=== PATIENT | male | born 1945 | race Caucasian/White ===

== ENCOUNTER → 2020-02-22 | Outpatient (CLI) | payer MEDICARE, OTHER ==
--- NOTE | 2020-02-22 09:48 | RAD ---
EXAM: Pelvis and right hip, 3 views. HISTORY: Pain. COMPARISON: None. FINDINGS: A frontal view of the pelvis and 2 views of the right hip are obtained. There is no fracture, dislocation or subluxation. There is lateral hip joint space narrowing. There is degenerative subchondral cyst formation involving the right acetabulum and superior femoral head. There is mild to moderate bilateral femoral head marginal spurring and decreased femoral head-neck offset suggesting chronic hip impingement. There is degenerative change at the lower lumbar levels. IMPRESSION: 1. Moderate right and mild left hip osteoarthritis and findings suggesting chronic bilateral hip impingement. 2. No acute osseous finding. Electronically signed by: Ruthy Potts MD (02/22/2020 9:45 AM) [facility]
== END ==
LOC: PMG 08:52
PROVIDERS: ATTEND Physician Assistant Medical
DX: M16.0 Bilateral primary osteoarthritis of hip (principal); M76.9 Unspecified enthesopathy, lower limb, excluding foot; M47.816 Spondylosis without myelopathy or radiculopathy, lumbar region
CPT/HCPCS: 73502

== ENCOUNTER 2020-10-02 12:18 | Observation (INO) | payer MEDICARE, OTHER ==
[~2020-10-02] VITALS: Ht 185.4 cm; Wt 78.2 kg
[2020-10-02] MEDS ORDERED: IV NORMAL SALINE 1,000ML 1,000 ML IV SCH (12:30)
[2020-10-02 12:42] LABS: BASO # 0.1 x10^3/uL (0.0-0.2); BASO % 1 % (0-3); EOS # 0.6 x10^3/uL (0.0-0.7); EOS % 7 % (0-3); HEMATOCRIT 43.3 % (39.0-53.0); HEMOGLOBIN 14.6 g/dL (13.0-17.5); LYMPH # 1.8 x10^3/uL (1.0-4.8); LYMPH % 21 % (24-48); MEAN CORPUSCULAR HEMOGLOBIN 30 pg (25-35); MEAN CORPUSCULAR HGB CONC 34 g/dL (31-37); MEAN CORPUSCULAR VOLUME 89 fL (79-100); MONO # 0.8 x10^3/uL (0.0-1.1); MONO % 10 % (0-9); NEUT # 5.1 x10^3uL (1.8-7.7); NEUT % 62 % (31-73); PLATELET COUNT 186 x10^3/uL (140-400); RED BLOOD COUNT 4.84 x10^6/uL (4.30-5.70); RED CELL DISTRIBUTION WIDTH 13.6 % (11.5-14.5); WHITE BLOOD COUNT 8.3 x10^3/uL (4.0-11.0)
[2020-10-02 12:48] LABS: CALCIUM 9.5 mg/dL (8.5-10.1); GFR 73.2; POTASSIUM 3.7 mmol/L (3.5-5.1)
--- NOTE | 2020-10-02 12:52 | EKG ---
[address] [address] Test Date: 2020-10-02 Test Time: 12:20:53 Pat Name: PEDRO MEJIA Department: Room: Gender: M Lunchroom Attendant: JUSTUS : 1945 Requested By: NESHA DAVISON Order Number: [id number] Reading MD: Measurements Intervals [place] Rate: 61 P: 34 ME: 256 QRS: 66 QRSD: 166 T: 247 QT: 416 QTc: 420 Interpretive Statements SINUS RHYTHM ATRIAL PREMATURE COMPLEX(ES), BIGEMINY PROLONGED ME INTERVAL NON SPECIFIC INTRAVENTRICULAR BLOCK ABNORMAL ECG RI6.02 No previous ECG available for comparison
--- NOTE | 2020-10-02 12:53 | EKG ---
[address] [address] Test Date: 2020-10-02 Test Time: 12:37:06 Pat Name: PEDRO MEJIA Department: Room: Gender: M Station Tender: JUSTUS : 1945 Requested By: NESHA DAVISON Order Number: [id number] Reading MD: Measurements Intervals [place] Rate: 55 P: 51 SD: 192 QRS: 52 QRSD: 98 T: 52 QT: 436 QTc: 419 Interpretive Statements SINUS RHYTHM NO SPECIFIC ECG ABNORMALITIES RI6.02 No previous ECG available for comparison
--- NOTE | 2020-10-02 12:57 | RAD ---
Exam Date: 10/02/2020 12:38 PM XR CHEST 1V Indication: Reason: syncope / Spl. Instructions: / History: . Comparison: March 27, 2016 FINDINGS/ IMPRESSION: Mild right basilar subsegmental atelectasis and/or scarring is again seen. The cardiac silhouette and pulmonary vasculature are within normal limits. There is no focal consolidation, pleural effusion or pneumothorax. Electronically signed by: Pedro Doan MD (10/02/2020 12:54 PM) [facility]
[2020-10-02 13:00] LABS: ALBUMIN 3.8 g/dL (3.4-5.0); ALBUMIN/GLOBULIN RATIO 1.3 (1.0-1.7); MAGNESIUM 2.3 mg/dL (1.8-2.4); TOTAL BILIRUBIN 0.4 mg/dL (0.2-1.0); TOTAL PROTEIN 6.7 g/dL (6.4-8.2)
--- NOTE | 2020-10-02 13:51 | EKG ---
[address] [address] Test Date: 2020-10-02 Test Time: 13:36:54 Pat Name: PEDRO MEJIA Department: Room: Gender: M Pump Attendant: JUSTUS : 1945 Requested By: NESHA DAVISON Order Number: [id number] Reading MD: Measurements Intervals [place] Rate: 69 P: 90 IN: 162 QRS: 57 QRSD: 100 T: 43 QT: 504 QTc: 542 Interpretive Statements SINUS RHYTHM VENTRICULAR PREMATURE COMPLEX(ES), BIGEMINY PROLONGED QT ABNORMAL ECG RI6.02 No previous ECG available for comparison
--- NOTE | 2020-10-02 13:55 | PHYS DOC ---
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 Past Surgical History: Tonsillectomy Additional Past Surgical Histo: nose Alcohol Use: None General Adult EDM: Chief Complaint: HYPOTENSION HPI: HPI: Patient is a [age] year old [sex] who presents with [] Review of Systems: Review of Systems: Constitutional: Denies fever or chills Eyes: Denies change in visual acuity HENT: Denies nasal congestion or sore throat Respiratory: Denies cough or shortness of breath Cardiovascular: Denies chest pain or edema GI: Denies abdominal pain, nausea, vomiting, bloody stools or diarrhea : Denies dysuria Musculoskeletal: Denies back pain or joint pain Integument: Denies rash Neurologic: Denies headache, focal weakness or sensory changes Endocrine: Denies polyuria or polydipsia Lymphatic: Denies swollen glands Psychiatric: Denies depression or anxiety Current Medications: Current Meds: Current Medications Medications (Trade) Dose Ordered Sig/Karen Start Time Stop Time Status Last Admin Dose Admin Sodium Chloride 1,000 ml @ 1,000 mls/hr Q1H 10/02/20 12:30 10/02/20 13:29 DC Allergies: Allergies: Allergies Coded Allergies Type Severity Reaction Last Updated Verified No Known Drug Allergies 10/02/20 No Physical Exam: PE: Constitutional: Well developed, well nourished, no acute distress, non-toxic appearance. [] HENT: Normocephalic, atraumatic, bilateral external ears normal, oropharynx moist, no oral exudates, nose normal. [] Eyes: PERRLA, EOMI, conjunctiva normal, no discharge. [] Neck: Normal range of motion, no tenderness, supple, no stridor. [] Cardiovascular:Heart rate regular rhythm, no murmur [] Lungs & Thorax: Bilateral breath sounds clear to auscultation [] Abdomen: Bowel sounds normal, soft, no tenderness, no masses, no pulsatile masses. [] Skin: Warm, dry, no erythema, no rash. [] Back: No tenderness, no CVA tenderness. [] Extremities: No tenderness, no cyanosis, no clubbing, ROM intact, no edema. [] Neurologic: Alert and oriented X 3, normal motor function, normal sensory function, no focal deficits noted. [] Psychologic: Affect normal, judgement normal, mood normal. [] Current Patient Data: Labs: Laboratory Tests Test 10/02/20 12:22 10/02/20 12:52 White Blood Count 8.3 x10^3/uL (4.0-11.0) Red Blood Count 4.84 x10^6/uL (4.30-5.70) Hemoglobin 14.6 g/dL (13.0-17.5) Hematocrit 43.3 % (39.0-53.0) Mean Corpuscular Volume 89 fL (79-100) Mean Corpuscular Hemoglobin 30 pg (25-35) Mean Corpuscular Hemoglobin Concent 34 g/dL (31-37) Red Cell Distribution Width 13.6 % (11.5-14.5) Platelet Count 186 x10^3/uL (140-400) Neutrophils (%) (Auto) 62 % (31-73) Lymphocytes (%) (Auto) 21 % (24-48) L Monocytes (%) (Auto) 10 % (0-9) H Eosinophils (%) (Auto) 7 % (0-3) H Basophils (%) (Auto) 1 % (0-3) Neutrophils # (Auto) 5.1 x10^3uL (1.8-7.7) Lymphocytes # (Auto) 1.8 x10^3/uL (1.0-4.8) Monocytes # (Auto) 0.8 x10^3/uL (0.0-1.1) Eosinophils # (Auto) 0.6 x10^3/uL (0.0-0.7) Basophils # (Auto) 0.1 x10^3/uL (0.0-0.2) Sodium Level 146 mmol/L (136-145) H Potassium Level 3.7 mmol/L (3.5-5.1) Chloride Level 105 mmol/L (98-107) Carbon Dioxide Level 33 mmol/L (21-32) H Anion Gap 8 (6-14) Blood Urea Nitrogen 19 mg/dL (8-26) Creatinine 1.0 mg/dL (0.7-1.3) Estimated GFR (Cockcroft-Gault) 73.2 BUN/Creatinine Ratio 19 (6-20) Glucose Level 118 mg/dL (70-99) H Calcium Level 9.5 mg/dL (8.5-10.1) Magnesium Level 2.3 mg/dL (1.8-2.4) Total Bilirubin 0.4 mg/dL (0.2-1.0) Aspartate Amino Transferase (AST) 18 U/L (15-37) Alanine Aminotransferase (ALT) 27 U/L (16-63) Alkaline Phosphatase 64 U/L (46-116) Creatine Kinase 34 U/L (39-308) L Troponin I Quantitative < 0.017 ng/mL (0-0.055) CG-Upa-X-Type Natriuretic Peptide 77 pg/mL (0-124) Total Protein 6.7 g/dL (6.4-8.2) Albumin 3.8 g/dL (3.4-5.0) Albumin/Globulin Ratio 1.3 (1.0-1.7) Lipase 78 U/L (73-393) D-Dimer (Mirna) 0.71 mg/L (0.00-0.50) H Vital Signs: Vital Signs Date Time Temp Pulse Resp B/P (MAP) Pulse Ox O2 Delivery O2 Flow Rate FiO2 10/02/20 13:29 44 16 115/51 (72) 97 Room Air 10/02/20 12:18 97.8 EKG: EK concern for wide-complex bradycardia, no P wave found, multiple PVCs, no ST elevations 1237 sinus bradycardia 55 bpm, normal intervals, no ST elevations or ST depressions, no T wave inversions 1336 bigeminy present, bradycardic wide-complex rhythm, no P wave found, Radiology/Procedures: Radiology/Procedures: []IMAGING REPORT Signed PATIENT: PEDRO MEJIA ACCOUNT: [id number] : 1945 LOCATION: ER AGE: 75 SEX: M EXAM STATUS: REG ER ORD. PHYSICIAN: NESHA DAVISON DO REASON: syncope PROCEDURE: PORTABLE CHEST 1V Exam Date: 10/02/2020 12:38 PM XR CHEST 1V Indication: Reason: syncope / Spl. Instructions: / History: . Comparison: March 27, 2016 FINDINGS/ IMPRESSION: Mild right basilar subsegmental atelectasis and/or scarring is again seen. The cardiac silhouette and pulmonary vasculature are within normal limits. There is no focal consolidation, pleural effusion or pneumothorax. Electronically signed by: Sarah Doan MD (10/02/2020 12:54 PM) [facility] DICTATED AND SIGNED BY: SARAH DOAN MD DATE: 10/02/20 1253 CC: NESHA EDMOND; NESHA DAVISON DO ~MTH0 0 IMAGING REPORT Signed PATIENT: PEDRO MEJIA ACCOUNT: [id number] : 1945 LOCATION: SOUTH AGE: 75 SEX: M EXAM STATUS: ADM IN ORD. PHYSICIAN: NESHA DAVISON DO REASON: syncope, r/o pe PROCEDURE: CT ANGIOGRAPHY CHEST Exam Date: 10/02/2020 2:31 PM CTA CHEST Indication: Reason: syncope, r/o pe / Spl. Instructions: OMNI 350 100ML / History: . TECHNIQUE: CT angiogram of the chest was performed following the administratio n of nonionic intravenous contrast for evaluation of pulmonary embolus. 3D MIPs were created and reviewed on an independent workstation to assist in diagnosis and clinical management. One or more of the following dose reduction techniques were utilized: *Automated exposure control (AEC) *Adjustment of mA and/or kV according to patient size *Use of iterative reconstruction technique *CT scan done according to ALARA, or ALARA/IMAGE GENTLY FINDINGS: There is adequate opacification of the pulmonary arteries. No central intravascular filling defects are appreciated. There is no evidence for central pulmonary embolus. The aorta is normal in caliber without evidence for dissection. Aortic calcifications are present. The heart is normal in size without pericardial effusion. The visualized thyroid gland is within normal limits. No lymphadenopathy is seen. The central airways are patent. There is no focal consolidation, pleural effusion or pneumothorax. Images of the upper abdomen demonstrate no focal abnormality. Degenerative changes are seen in the spine. IMPRESSION: No evidence for central pulmonary embolus. Electronically signed by: Sarah Doan MD (10/02/2020 2:57 PM) [facility] DICTATED AND SIGNED BY: SARAH DOAN MD DATE: 10/02/20 1448 CC: RIGO PERRIN MD; NESHA EDMOND; NESHA DAVISON DO ~MTH0 0 IMAGING REPORT Signed PATIENT: PEDRO MEJIA ACCOUNT: [id number] : 1945 LOCATION: ER AGE: 75 SEX: M EXAM STATUS: REG ER ORD. PHYSICIAN: NESHA DAVISON DO REASON: syncope PROCEDURE: CT HEAD AND CERVICAL SPINE WO Exam Date: 10/02/2020 1:[address] HEAD AND C-SPINE WO Indication: Reason: syncope / Spl. Instructions: / History: . One or more of the following dose reduction techniques were utilized: *Automated exposure control (AEC) *Adjustment of mA and/or kV according to patient size *Use of iterative reconstruction technique *CT scan done according to ALARA, or ALARA/IMAGE GENTLY EXAMINATION: CT OF THE HEAD WITHOUT CONTRAST INDICATION: Trauma, head injury, headache; TECHNIQUE: Noncontrast helical axial CT images of the head were obtained. FINDINGS: The ventricles and sulci are prominent consistent with cerebral volume loss. Patchy ill-defined low attenuation areas in the subcortical and periventricular white matter bilaterally are consistent with microvascular disease. There is no evidence of acute intracranial hemorrhage, extra-axial collection, mass effect, midline shift, or acute territorial infarct. No lesion of the skull base or the calvarium is seen. The visualized mastoid air cells, and orbits are normal in appearance. There is partial opacification of the paranasal sinuses. IMPRESSION: No evidence for acute intracranial abnormality. Volume loss and microvascular disease. EXAMINATION: CT OF THE CERVICAL SPINE WITHOUT CONTRAST Clinical Indication: Cervical spine pain after trauma Technique: Thin cut helical axial CT images through the cervical spine were obtained without contrast on a multi-detector CT scanner. Source data was then reconstructed into sagittal and coronal planes. Findings: Alignment is maintained without spondylolisthesis. Vertebral body heights are maintained without acute fracture. Mild multilevel degenerative changes are noted. No significant prevertebral soft tissue swelling is demonstrated. No severe central canal stenosis is seen. Impression: No evidence of acute cervical spine fracture or subluxation. Electronically signed by: Sarah Doan MD (10/02/2020 2:24 PM) [facility] DICTATED AND SIGNED BY: SARAH DOAN MD DATE: 10/02/20 141 CC: NESHA EDMOND; NESHA DAVISON DO ~MTH0 0 Heart Score: C/O Chest Pain: No Risk Factors: Risk Factors: DM, Current or recent (<one month) smoker, HTN, HLP, family history of CAD, obesity. Risk Scores: Score 0 - 3: 2.5% MACE over next 6 weeks - Discharge Home Score 4 - 6: 20.3% MACE over next 6 weeks - Admit for Clinical Observation Score 7 - 10: 72.7% MACE over next 6 weeks - Early Invasive Strategies Course & Med Decision Making: Course & Med Decision Making Pertinent Labs and Imaging studies reviewed. (See chart for details) Concern for syncope in the setting of bradycardia, concerning for symptomatic bradycardia. Patient with no active chest pain or difficulties breathing in ED. Patient denies any exertional dyspnea. Supportive and daughter at bedside, (patient consents to his/her/their knowledge and involvement in pts' medical care), who both confirm patient has become weaker and mentally slower over the past month, states he is taking frequent naps. Med list reviewed by myself, takes Norvasc but is not on any beta-blockers. I discussed patient's presentation and EKGs with Dr. Cristina, no atrophy at this time given map is above 65. Will admit to Dr. Carrera for further medical management, follow-up cardiology consultation pending. Patient stable time of admission and agrees with this plan. I have spoken with the patient and/or caregivers. I have explained the patient's condition, diagnosis and treatment plan based on the information available to me at this time. I have answered the patient's and/or caregivers questions and answered any concerns. The patient and/or caregivers have as good an understanding of the patient's diagnosis, condition and treatment plan as can be expected at this point. The patient has been stabilized within the capability of the emergency department. The patient will be transported for further care and management or will be moved to an observation or inpatient service. I have communicated with the staff or medical practitioner taking over this patient's care. Dragon Disclaimer: Joyce Disclaimer: This electronic medical record was generated, in whole or in part, using a voice recognition dictation system. Departure Departure: Impression: Primary Impression: Syncope Additional Impression: Symptomatic bradycardia Disposition: ADMITTED INPATIENT Admitting Physician: Rigo Perrin Condition: STABLE Referrals: NESHA EDMOND (PCP) NESHA DAVISON DO Oct 02, 2020 13:55
[2020-10-02] MEDS ORDERED: IOHEXOL 350 MG/ML 100 ML VIAL. IV ONE (14:15)
--- NOTE | 2020-10-02 14:26 | RAD ---
Exam Date: 10/02/2020 1:[address] HEAD AND C-SPINE WO Indication: Reason: syncope / Spl. Instructions: / History: . One or more of the following dose reduction techniques were utilized: *Automated exposure control (AEC) *Adjustment of mA and/or kV according to patient size *Use of iterative reconstruction technique *CT scan done according to ALARA, or ALARA/IMAGE GENTLY EXAMINATION: CT OF THE HEAD WITHOUT CONTRAST INDICATION: Trauma, head injury, headache; TECHNIQUE: Noncontrast helical axial CT images of the head were obtained. FINDINGS: The ventricles and sulci are prominent consistent with cerebral volume loss. Patchy ill-defined low attenuation areas in the subcortical and periventricular white matter bilaterally are consistent with microvascular disease. There is no evidence of acute intracranial hemorrhage, extra-axial collecti on, mass effect, midline shift, or acute territorial infarct. No lesion of the skull base or the calv arium is seen. The visualized mastoid air cells, and orbits are normal in appearance. There is parti al opacification of the paranasal sinuses. IMPRESSION: No evidence for acute intracranial abnormality. Volume loss and microvascular disease. EXAMINATION: CT OF THE CERVICAL SPINE WITHOUT CONTRAST Clinical Indication: Cervical spine pain after trauma Technique: Thin cut helical axial CT images through the cervical spine were obtained without contrast on a multi-detector CT scanner. Source data was then reconstructed into sagittal and coronal planes. Findings: Alignment is maintained without spondylolisthesis. Vertebral body heights are maintained without acute fracture. Mild multilevel degenerative changes ar e noted. No significant prevertebral soft tissue swelling is demonstrated. No severe central canal st enosis is seen. Impression: No evidence of acute cervical spine fracture or subluxation. Electronically signed by: Pedro Doan MD (10/02/2020 2:24 PM) [facility]
--- NOTE | 2020-10-02 14:59 | RAD ---
Exam Date: 10/02/2020 2:31 PM CTA CHEST Indication: Reason: syncope, r/o pe / Spl. Instructions: OMNI 350 100ML / History: . TECHNIQUE: CT angiogram of the chest was performed following the administration of nonionic intrave nous contrast for evaluation of pulmonary embolus. 3D MIPs were created and reviewed on an [employer] workstation to assist in diagnosis and clinical management. One or more of the following dose red uction techniques were utilized: *Automated exposure control (AEC) *Adjustment of mA and/or kV according to patient size *Use of iterative reconstruction technique *CT scan done according to ALARA, or ALARA/IMAGE GENTLY FINDINGS: There is adequate opacification of the pulmonary arteries. No central intravascular filling defects are appreciated. There is no evidence for central pulmonary embolus. The aorta is normal in caliber without evidence for dissection. Aortic calcifications are present. The heart is normal in size without pericardial effusion. The visualized thyroid gland is within normal limits. No lymphadenopathy is seen. The central airways are patent. There is no focal consolidation, pleural effusion or pneumothorax. Images of the upper abdomen demonstrate no focal abnormality. Degenerative changes are seen in the s pine. IMPRESSION: No evidence for central pulmonary embolus. Electronically signed by: Pedro Doan MD (10/02/2020 2:57 PM) [facility]
[2020-10-02 15:26] LABS: BARBITURATES NEG (NEG); BENZODIAZEPINES NEG (NEG); CANNABINOIDS NEG (NEG); COCAINE NEG (NEG); METHADONE NEG (NEG); OPIATES NEG (NEG); PHENCYCLIDINE NEG (NEG)
[2020-10-02 15:27] LABS: AMPHETAMINE/METHAMPHETAMINE NEG (NEG)
[2020-10-02 15:36] LABS: BILIRUBIN,URINE NEG (NEG); CLARITY,URINE CLEAR; COLOR,URINE YELLOW; GLUCOSE,URINE NEG (NEG)
[2020-10-02 15:37] LABS: NITRITE,URINE NEG (NEG); UROBILINOGEN,URINE 0.2 mg/dL (0.2 mg/dL)
[2020-10-02 15:38] LABS: BACTERIA,URINE 0 /HPF (0-FEW); RBC,URINE 0 /HPF (0-2); WBC,URINE 0 /HPF (0-4)
[2020-10-02 16:14] VITALS: BP 132/74
[2020-10-02] MEDS ORDERED: LISI40TA6 PO (16:57)
[2020-10-02] MEDS ORDERED: CLON0.5T4 PO (16:57)
[2020-10-02] MEDS ORDERED: GUAI200T3 PO (16:57)
[2020-10-02] MEDS ORDERED: METF500T16 PO (16:57)
[2020-10-02] MEDS ORDERED: AMLO-187 PO (16:57)
[2020-10-02] MEDS ORDERED: HYDR12.58 PO (16:57)
[2020-10-02] MEDS ORDERED: SIMV10TA15 PO (16:57)
--- NOTE | 2020-10-02 17:00 | NUR ---
Nursing Note Admission Pt arrived via EMS at 1555. Pt was settled in to the room by this nurse. Pt and daughter present. Pt pleasant and cooperative.
--- NOTE | 2020-10-02 17:06 | NUR ---
Nursing Note Cardiology This nurse called cardiology for a consult.
[2020-10-02 19:30] VITALS: BP 146/75
[2020-10-02 22:45] VITALS: BP 146/73
[2020-10-03 06:00] VITALS: BP 149/74
--- NOTE | 2020-10-03 07:53 | PDOC2 ---
CARDIAC CONSULT DATE OF CONSULT DOS: DATE: 10/03/20 TIME: 07:49 REASON FOR CONSULT Reason for Consult syncope symptomatic bradycardia REFERRING PHYSICIAN Referring Physician Dr. Zimmerman SOURCE Source: Chart review, Patient HPI History of Present Illness This is a 75 yo male who presented secondary to lightheadedness. Patient is somewhat of a poor historian. Reports he was out helping his son work on his truck. Reports he began "not feeling well". Had difficulty eliciting symptoms he was experiencing. Does report experiencing some lightheadedness. Denies any chest pain, palpitations, shortness of breath, diaphoresis, nausea/vomiting, or syncope. Per family, patient was helping son with vehicle and became overheated. Langlois lightheaded. Family took him inside and sat him down. Subsequently had brief syncopal episode. No complaints of chest pain, shortness of breath, palpitations, or nausea/vomiting. Does have short-term memory loss at baseline. [facility] Family reports normal stress test and echocardiogram 2 years. PAST MEDICAL HISTORY Cardiovascular: HTN CENTRAL NERVOUS SYSTEM: Dementia Psych: Anxiety Endocrine: Diabetes PAST SURGICAL HISTORY Past Surgical History: Tonsillectomy FAMILY HISTORY Family History: Diabetes, Heart Disease (father) SOCIAL HISTORY Smoke: Quit ALCOHOL: none Drugs: None Lives: with Family CURRENT MEDICATIONS Current Medications Current Medications Sodium Chloride 1,000 ml @ 1,000 mls/hr Q1H IV Last administered on 10/02/20at 12:25; Start 10/02/20 at 12:30; Stop 10/02/20 at 13:29; Status DC Iohexol (Omnipaque 350 Mg/ml) 100 ml 1X ONCE IV Last administered on 10/02/20at 14:37; Start 10/02/20 at 14:15; Stop 10/02/20 at 14:17; Status DC Active Scripts Active Reported Metformin Hcl 500 Mg Tablet 1 Tab PO DAILY Clonazepam 0.5 Mg Tablet 2 Tab PO DAILY Amlodipine Besylate 10 Mg Tablet 1 Tab PO DAILY Lisinopril 40 Mg Tablet 1 Tab PO DAILY Guaifenesin 200 Mg Tablet 40 Mg PO BID PRN Simvastatin 10 Mg Tablet 10 Mg PO DAILY Hydrochlorothiazide Tablet (Hydrochlorothiazide) 12.5 Mg Tablet 12.5 Mg PO DAILY ALLERGIES Allergies: Coded Allergies: No Known Drug Allergies (Unverified , 10/02/20) ROS Review of Systems 14 point ROS conducted with pertinent positives noted above in HPI, although limited due to forgetfulness PHYSICAL EXAM General: Alert, Oriented X3, Cooperative, No acute distress HEENT: Atraumatic Lungs: Clear to auscultation Heart: Regular rate Abdomen: Soft, No tenderness Extremities: No edema, Normal pulses Skin: No breakdown Neuro: Normal speech, Sensation intact Psych/Mental Status: Mental status NL, Mood NL MUSCULOSKELETAL: Osteoarthritic changes both hands VITALS Vital Signs Vital Signs Date Time Temp Pulse Resp B/P (MAP) Pulse Ox O2 Delivery O2 Flow Rate FiO2 10/03/20 06:00 97.9 59 16 149/74 (99) 95 Room Air LABS LABS Laboratory Tests Test 10/02/20 12:22 10/02/20 12:52 10/02/20 14:59 10/02/20 16:00 White Blood Count 8.3 x10^3/uL (4.0-11.0) Red Blood Count 4.84 x10^6/uL (4.30-5.70) Hemoglobin 14.6 g/dL (13.0-17.5) Hematocrit 43.3 % (39.0-53.0) Mean Corpuscular Volume 89 fL (79-100) Mean Corpuscular Hemoglobin 30 pg (25-35) Mean Corpuscular Hemoglobin Concent 34 g/dL (31-37) Red Cell Distribution Width 13.6 % (11.5-14.5) Platelet Count 186 x10^3/uL (140-400) Neutrophils (%) (Auto) 62 % (31-73) Lymphocytes (%) (Auto) 21 % (24-48) Monocytes (%) (Auto) 10 % (0-9) Eosinophils (%) (Auto) 7 % (0-3) Basophils (%) (Auto) 1 % (0-3) Neutrophils # (Auto) 5.1 x10^3uL (1.8-7.7) Lymphocytes # (Auto) 1.8 x10^3/uL (1.0-4.8) Monocytes # (Auto) 0.8 x10^3/uL (0.0-1.1) Eosinophils # (Auto) 0.6 x10^3/uL (0.0-0.7) Basophils # (Auto) 0.1 x10^3/uL (0.0-0.2) Sodium Level 146 mmol/L (136-145) Potassium Level 3.7 mmol/L (3.5-5.1) Chloride Level 105 mmol/L (98-107) Carbon Dioxide Level 33 mmol/L (21-32) Anion Gap 8 (6-14) Blood Urea Nitrogen 19 mg/dL (8-26) Creatinine 1.0 mg/dL (0.7-1.3) Estimated GFR (Cockcroft-Gault) 73.2 BUN/Creatinine Ratio 19 (6-20) Glucose Level 118 mg/dL (70-99) Calcium Level 9.5 mg/dL (8.5-10.1) Magnesium Level 2.3 mg/dL (1.8-2.4) Total Bilirubin 0.4 mg/dL (0.2-1.0) Aspartate Amino Transf (AST/SGOT) 18 U/L (15-37) Alanine Aminotransferase (ALT/SGPT) 27 U/L (16-63) Alkaline Phosphatase 64 U/L (46-116) Creatine Kinase 34 U/L (39-308) Troponin I Quantitative < 0.017 ng/mL (0-0.055) < 0.017 ng/mL (0-0.055) AM-Fxa-T-Type Natriuretic Peptide 77 pg/mL (0-124) Total Protein 6.7 g/dL (6.4-8.2) Albumin 3.8 g/dL (3.4-5.0) Albumin/Globulin Ratio 1.3 (1.0-1.7) Lipase 78 U/L (73-393) D-Dimer (Mirna) 0.71 mg/L (0.00-0.50) Urine Collection Type Unknown Urine Color Yellow Urine Clarity Clear Urine pH 7.0 Urine Specific [place] 1.020 Urine Protein Neg (NEG-TRACE) Urine Glucose (UA) Neg mg/dL (NEG) Urine Ketones (Stick) Trace mg/dL (NEG) Urine Blood Neg (NEG) Urine Nitrite Neg (NEG) Urine Bilirubin Neg (NEG) Urine Urobilinogen Dipstick 0.2 mg/dL (0.2 mg/dL) Urine Leukocyte Esterase Neg (NEG) Urine RBC 0 /HPF (0-2) Urine WBC 0 /HPF (0-4) Urine Squamous Epithelial Cells None /LPF Urine Bacteria 0 /HPF (0-FEW) Urine Opiates Screen Neg (NEG) Urine Methadone Screen Neg (NEG) Urine Barbiturates Neg (NEG) Urine Phencyclidine Screen Neg (NEG) Urine Amphetamine/Methamphetamine Neg (NEG) Urine Benzodiazepines Screen Neg (NEG) Urine Cocaine Screen Neg (NEG) Urine Cannabinoids Screen Neg (NEG) Urine Ethyl Alcohol Neg (NEG) Test 10/02/20 19:15 10/03/20 07:14 Troponin I Quantitative < 0.017 ng/mL (0-0.055) Glucose (Fingerstick) 109 mg/dL (70-99) ASSESSMENT/PLAN Assessment/Plan 1. Dizziness, syncope; CT head without acute findings. Tele without significant acute findings 2. Sinus bradycardia; lowest overnight 42. No pauses. presently 72 while awake. EKG shows SR with PVC's. No acute indication for PPM 3. Arrhythmia; frequent PVC's. 4. Hypertension; controlled 5. Diabetes, II 6. Mild dementia Recommendations Check orthostatic VS TSH, lipids Avoid AV kesha blocking agents Will arrange outpatient echo to assess LV systolic function and event monitor Outpatient ischemic evaluation with stress testing Follow up in our office with Dr. Cristina. JENNIFER PICKARD APRN Oct 03, 2020 07:53
[2020-10-03 08:21] VITALS: BP 150/75
[2020-10-03 08:22] VITALS: BP 134/76
[2020-10-03 08:23] VITALS: BP 111/69
[2020-10-03 10:14] VITALS: BP 160/76
--- NOTE | 2020-10-03 10:46 | HP ---
ADMIT DATE: 10/02/2020 ATTENDING PHYSICIAN: Dr. Chadwick. CHIEF COMPLAINT: Syncopal episode. HISTORY OF PRESENT ILLNESS: The patient is a 75-year-old gentleman admitted through the ED with a witnessed syncopal episode. He was nauseated. He felt dizzy. He asked his to call EMS. Unfortunately, he is a little bit forgetful and is not a very good historian. At the time I saw him the next day, he was in a sinus rhythm. Blood pressure was adequate. His home meds were reviewed. He denied any chest pains or palpitations. PAST MEDICAL HISTORY: Significant for labile hypertension. MEDICATIONS: He takes amlodipine, clonazepam, guaifenesin, hydrochlorothiazide, lisinopril, metformin, and Zocor. He denied any previous history of heart disease, myocardial infarction or arrhythmia. SOCIAL HISTORY: He is a nonsmoker, nondrinker. 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 He is since retired. He denies any alcohol or tobacco use. FAMILY HISTORY: Mom of colon cancer at age 82. Father of alcohol-related issues at about age 60. He could not give any further details. REVIEW OF SYSTEMS: Unremarkable for any fevers, chills, chest pain, palpitations. He felt lightheaded. It is unclear whether he truly passed out. His said he did have several seconds loss of consciousness. He denied any nausea or vomiting, GI discomfort, diarrhea. All other systems reviewed and turned to be negative. PHYSICAL EXAMINATION: GENERAL: When I saw him, this is a pleasant elderly gentleman who is not a very good historian. He had some issues with memory. VITAL SIGNS: His initial blood pressure was 137/71, pulse was between 60 and 80 and regular. He was afebrile, oxygen saturation 97% on room air. HEENT: Head is without trauma. Pupils are reactive. Sclerae nonicteric. Oropharynx is clear. NECK: Supple, no bruits identified. LUNGS: Otherwise clear. CARDIOVASCULAR: Regular heart tones. No gallops. ABDOMEN: Soft. EXTREMITIES: Without edema. NEUROLOGIC: Function focally intact. Speech is fluent. He has no deficits. SKIN: Warm and dry. PERTINENT LABORATORY STUDIES: Hemoglobin is 14.6 g/dL, white count 8300. The lab work showed a creatinine of 1.0 mg percent. Three sets of cardiac enzymes negative for coronary ischemia. Nonfasting blood sugar 109, transaminase and liver panel all within normal range. EKG showed a sinus bradycardia. The obligatory CT of the head showed no acute strokes or bleeds. Cervical spine films are unremarkable. Chest x-ray showed no acute pneumonias. ASSESSMENT: 1. This ____[id number]-ydz gentleman has a supposed witnessed syncopal episode. 2. Labile hypertension. 3. Sinus bradycardia. 4. Questionable diabetes. 5. Hyperlipidemia. PLAN: 1. Admit to hospital observation status, telemetry monitoring. 2. Formal Cardiology consultation in the morning. 3. Serial cardiac enzymes. ROSS/ADE/PONCHO DR: Madyson TID: [id number] CC: SAMANTHA HUANG
--- NOTE | 2020-10-03 11:39 | NUR ---
PATIENT IS DISCHARGED HOME, DISCHARGE INSTRUCTION REVIEWED , FAMILY MEMBER AND PATIENT VERBALIZED UNDERSTANDING. PATIENT LEFT ROOM VIA W/C ACCOMP BY THIS RN. PATIENT TAKEN HOME BY FAMILY MEMBER VIA PERSONAL VEHICLE.
--- NOTE | 2020-10-03 14:53 | DS ---
DATE OF DISCHARGE: 10/03/2020 ATTENDING PHYSICIAN: Dr. Chadwick. FINAL DISCHARGE DIAGNOSES: 1. Symptomatic bradycardia, resolved. 2. Labile hypertension. 3. Syncopal episode. 4. Type 2 diabetes. 5. Underlying dementia. HISTORY AND PHYSICAL: The patient is a 75-year-old gentleman who felt weak, nauseated. He had a syncopal event witnessed by his . He was admitted for further treatment and evaluation. Since his admission, when I saw him, he was alert. Blood pressure and vital signs were normal. Heart rate was in the 70s. We recorded some heart rates in the 40s. It was a sinus bradycardia. He may have had a vasovagal episode. PHYSICAL EXAMINATION: Please see the dictated note. PERTINENT LABORATORY AND X-RAY STUDIES: Hemoglobin is 14.6 g/dL, white count 8300. Electrolytes within normal range. Nonfasting blood sugar 118. Three sets of cardiac enzymes negative for coronary ischemia. Transaminases are normal. The obligatory CT of the head showed prominent ventricles and sulci consistent with cerebral volume loss, microvascular disease in the subcortical and periventricular white matter. No evidence of acute bleed and stroke. Chest x-ray showed no acute pathology. COURSE IN THE HOSPITAL: The patient was admitted and placed on the monitor. He did not have any further bradycardia or arrhythmia. Diet was advanced. He was a bit confused and unfortunately has memory issues, which has been corroborated by the . Formal Cardiology consult was obtained. They recommend further outpatient evaluation including an event monitor, stress test, and a probable echocardiogram. This is within normal range per the mortarman's. On the next hospital day, the patient's vital signs were stable. He was discharged home. For now, I suggested that he hold his diuretics. His other meds are unchanged. They include the following: He should continue his amlodipine, Klonopin, guaifenesin, lisinopril, metformin, and Zocor doses unchanged. I had a long discussion with the , who is the primary sealer aircraft. She understands the followup plan. Once again, Cardiology saw this patient and has scheduled several outpatient evaluations. The patient was then discharged from our hospital in stable condition with explicit drug and followup care, also given to his . No new medications. For now, we are going to hold off on the hydrochlorothiazide. ROSS/LILIANA POLLOCK: ROSS/nts TID: [id number] CC: SAMANTHA HUANG
[2020-10-03 17:58] LABS: THYROID STIM HORMONE (TSH) 1.66 uIU/mL (0.358-3.740)
== END 2020-10-03 11:40 | disposition home or self-care (01) ==
LOC: ER 12:18 → 1 SOUTH 13:46 → INTOOBSV 13:46
PROVIDERS: ADMIT Hospitalist; ATTEND Hospitalist
DX: R55 Syncope and collapse (principal); S09.90XA Unspecified injury of head, initial encounter; I10 Essential (primary) hypertension; R42 Dizziness and giddiness; I49.9 Cardiac arrhythmia, unspecified; E78.5 Hyperlipidemia, unspecified; F03.90 Unspecified dementia, unspecified severity, without behavioral disturbance, psychotic disturbance, mood disturbance, and anxiety; I49.3 Ventricular premature depolarization; I95.9 Hypotension, unspecified; E11.9 Type 2 diabetes mellitus without complications; Z86.711 Personal history of pulmonary embolism; Z79.899 Other long term (current) drug therapy; Z79.84 Long term (current) use of oral hypoglycemic drugs; X58.XXXA Exposure to other specified factors, initial encounter; Y92.89 Other specified places as the place of occurrence of the external cause; Y93.89 Activity, other specified; Y99.8 Other external cause status
CPT/HCPCS: 36415; 70450; 71045; 71275; 72125; 80053; 80061; 80307; 81001; 82550; 82947; 83690; 83735; 83880; 84443; 84484; 85025; 85379; 93005; 96360; 96361; 99285; G0378; J7030; Q9967; G0379

== ENCOUNTER → 2020-10-20 | Outpatient (CLI) | payer MEDICARE, OTHER ==
[2020-10-03 10:14] VITALS: BP 160/76
[~2020-10-20] MED LIST: AMLO-187 PO; CLON0.5T4 PO; GUAI200T3 PO; HYDR12.58 PO; LISI40TA6 PO; METF500T16 PO; REGADENOSON 0.4 MG/5 ML DISP.SYRIN. IV ONE; SIMV10TA15 PO
--- NOTE | 2020-10-20 18:10 | RAD ---
MR#: [id number] Date of Study: 10/20/2020 Ordering Physician: ALVIN BRIDGES, Referring Physician: CRYSTAL VILLASENOR Tech: RT Traci (R) (N) APPROVED REPORT Test Type: Pharmacological Stress Nurse/Tech: Adrián/Ade Test Indications: Syncopy Cardiac History: No known cardiac Resting Heart Rate: 60 bpm Resting Blood Pressure: 140/64mmHg Pretest Chest Pain: None Pharm. Details Pharmacologic stress testing was performed using 0.4mg per 5ml of regadenoson given intravenously ove r 7-10 seconds. Stress Symptoms dyspnea POST EXERCISE Reason for Termination: Infusion complete Max HR: 152 bpm Max Blood Pressure: 150/45mmHg Blood Pressure response to exercise: Normal blood pressure response during stress. Heart Rate response to exercise: Normal Chest Pain: No. Arrhythmia: No. ST Change: No. INTERPRETATION Stress EKG Conclusion: The resting EKG shows a sinus rhythm with nonspecific ST segment changes. The stress EKG shows no significant changes from baseline but does have increased numbers of PVCs. No EKG evidence of stress-induced ischemia. Imaging Protocol IMAGE PROTOCOL: Rest Tc-99m/stress Tc-99m 1 day Rest: Stress: Viability: Radiopharm.Tc99m [id number] Sestamibi [id number] 30mCi Duration 15min. 15min. Img Date 10/20/2020 10/20/2020 Inj-Img Nzqu13knw. 60min. Rest Admin Site:IV - Right AntecubitalAdministrator: RT Traci (R)(N) Stress Admin Site: IV - Right AntecubitalAdministrator: RT Traci (R)(N) STRESS DATA End Diast. Vol.98.0mlAv. Heart Rate71.0bpm End Syst. Vol.28.0mlCO Index BSA5.0L/min Myocardial Yebd652.0gEject. Owbhycal21.0% Stress Rates Pk. Fill Rate2.97EDV/secLVtime Pk. Fill 108.52msec Pk. Empty Rate4.36ESV/secLVtime Pk. Pqquc501.87msec 1/3 Pk. Fill1.91EDV/sec Stress Scores Regional WT1.00Summed WT11.00 Regional WM0.00Summed WM0.00 LV Perfusion The stress scans show no significant defects. The rest scans show no significant defects. Nuclear imaging shows no reversible ischemia or infarct. Wall Motion Left ventricular systolic function is normal with no regional wall motion abnormalities and an ejecti on fraction of greater than 70%. LV Perf. Quant 17 Seg. SSS1.00 17 Seg. SRS1.00 17 Seg. SDS1.00 Stress Defect Extent (% LAD)0.00Rest Defect Extent (% LAD)1.90Rev. Defect Extent (% LAD)0.00 Stress Defect Extent (% LCX) 6.30Rest Defect Extent (% LCX)0.00Rev. Defect Extent (% LCX)1.30 Stress Defect Extent (% RCA)0.00Rest Defect Extent (% RCA)0.00Rev. Defect Extent (% RCA)0.00 Stress Defect Extent (% HUSAM)1.50Rest Defect Extent (% HUSAM)2.00Rev. Defect Extent (% HUSAM)0.20 Conclusion 1. No EKG evidence of stress-induced ischemia however the patient did have increased PVCs with infusi on. 2. Nuclear imaging shows no reversible ischemia or infarct. 3. Left ventricular systolic function is normal with an ejection fraction of greater than 70%. 4. Moderately low to low risk Lexiscan nuclear stress test. Signed by : Ed Bond MD Electronically Approved : 10/20/2020 18:09:29
== END ==
LOC: NM 07:34
PROVIDERS: ATTEND Internal Medicine Cardiovascular Disease
DX: R55 Syncope and collapse (principal)
CPT/HCPCS: 78452; 93017; A9500; J2785

== ENCOUNTER → 2020-11-08 | Outpatient (CLI) | payer MEDICARE, OTHER ==
[~2020-11-08] MED LIST changes: -REGADENOSON 0.4 MG/5 ML DISP.SYRIN. IV ONE
--- NOTE | 2020-11-08 17:39 | CARD ---
MR#: [id number] Date of Study: 11/08/2020 Ordering Physician: ALVIN BRIDGES, Referring Physician: ALVIN BRIDGES, Tech: Esteban Dietz [facility] APPROVED REPORT EXAM: Two-dimensional and M-mode echocardiogram with Doppler and color Doppler. Other Information Quality : AverageHR: 60bpm Rhythm : NSR INDICATION Syncope 2D DIMENSIONS Left Atrium(2D)2.8 (1.6-4.0cm)IVSd1.2 (0.7-1.1cm) Aortic Root(2D)3.3 (2.0-3.7cm)LVDd4.2 (3.9-5.9cm) LVOT Diameter2.1 (1.8-2.4cm)PWd1.2 (0.7-1.1cm) LVDs2.2 (2.5-4.0cm)FS (%) 46.9 % SV61.7 ml Aortic Valve AoV Peak Jorge Luis.122.4cm/sAoV VTI25.2cm AO Peak GR.6.0mmHgLVOT Peak Jorge Luis.72.7cm/s LVOT VTI 16.29cmAO Mean GR.3mmHg LEWIS (VMAX)2.86ay9WKN (VTI)2.26cm2 Mitral Valve MV E Jxfizfaw88.3cm/sMV E Peak Gr.2mmHg MV DECEL [id number] A Rqlwtjqa28.8cm/s MV E Mean Gr.1mmHgE/A Ratio0.7 Pulmonary Valve PV Peak Ctfzdggx45.1cm/sPV Peak Grad.3mmHg Tricuspid Valve TR P. Bbtjlnnb032ka/sTR Peak Gr.23mmHg Pulmonary Vein S1 Fpiwvrdn09.0cm/sD2 Tzcbkgan60.2cm/s LEFT VENTRICLE The left ventricle is normal size. There is borderline to mild concentric left ventricular hypertroph y. The left ventricular systolic function is normal and the ejection fraction is within normal range. LV ejection fraction is 50 to 55%. There is normal LV segmental wall motion. Transmitral Doppler saida w pattern is Grade I-abnormal relaxation pattern. No left ventricle thrombus noted on this study. The re is no ventricular septal defect visualized. There is no left ventricular aneurysm. There is no mas s noted in the left ventricle. RIGHT VENTRICLE The right ventricle is normal size. There is normal right ventricular wall thickness. The right ventr icular systolic function is normal. ATRIA The left atrium is mildly dilated. The right atrium size is normal. The interatrial septum is intact with no evidence for an atrial septal defect or patent foramen ovale as noted on 2-D or Doppler imagi ng. AORTIC VALVE The aortic valve is normal in structure and function. Doppler and Color Flow revealed no significant aortic regurgitation. There is no significant aortic valvular stenosis. There is no aortic valvular v egetation. MITRAL VALVE The mitral valve is normal in structure and function. There is no evidence of mitral valve prolapse. There is no mitral valve stenosis. Doppler and Color-flow revealed trace mitral regurgitation. TRICUSPID VALVE The tricuspid valve is normal in structure and function. Doppler and Color Flow revealed trace to mil d tricuspid regurgitation. The pulmonary artery systolic pressure is estimated at 28 mmHg. There is n o tricuspid valve prolapse or vegetation. There is no tricuspid valve stenosis. PULMONIC VALVE The pulmonary valve is normal in structure and function. GREAT VESSELS The aortic root is normal in size. The ascending aorta is normal in size. The pulmonary artery is nor mal. The IVC is normal in size and collapses >50% with inspiration. PERICARDIAL EFFUSION There is no pleural effusion. There is no evidence of significant pericardial effusion. Critical Notification Critical Value: No <Conclusion> The left ventricle is normal size. The left ventricular systolic function is normal and the ejection fraction is within normal range. LV ejection fraction is 50 to 55%. There is borderline to mild concentric left ventricular hypertrophy. Doppler and Color Flow revealed no significant aortic regurgitation. There is no significant aortic valvular stenosis. Doppler and Color-flow revealed trace mitral regurgitation. Doppler and Color Flow revealed trace to mild tricuspid regurgitation. The pulmonary artery systolic pressure is estimated at 28 mmHg. Signed by : Ed Bond MD Electronically Approved : 11/08/2020 17:38:53
== END ==
LOC: ECHO 10:59
PROVIDERS: ATTEND Internal Medicine Cardiovascular Disease
DX: I07.1 Rheumatic tricuspid insufficiency (principal)
CPT/HCPCS: 93306